=== PATIENT | male | born 1940 | race Caucasian/White ===

== ENCOUNTER 2017-10-27 11:59 | Emergency (ER) | payer MEDICARE, OTHER ==
[~2017-10-27] VITALS: Ht 190.5 cm; Wt 106.6 kg
[~2017-10-27 11:59] MED LIST: CIPRO500 MG PO; DILAUDID2 MG PO; FLOMAX0.4 MG PO; MULTIVITAMINS1 EAC7 PO; NIACIN50 MG PO; ZINC50 MG PO; ZOFRAN ODT4 MG PO
[2017-10-27] MEDS ORDERED: ALEVE220 MG (12:12)
[2017-10-27] MEDS ORDERED: TURMERIC500 M2 PO (12:13)
--- OUTSIDE RECORDS SUMMARY | 2017-10-27 13:27 | XMS | Clinical Summary ---
Demographics + + + | Address | [address] | | | [place] [address] | + + + | Home Phone | | + + + | Preferred Language | Unknown | + + + | Marital Status | | + + + | Episcopal Affiliation | 1013 | + + + | Race | Unknown | + + + | Ethnic Group | Unknown | + + + Author + + + | Author | [facility] | | | and [place] | + + + | Organization | [facility] | | | and [place] | + + + | Address | Unknown | + + + | Phone | Unavailable | + + + Support + + + + + | Name | Relationship | Address | Phone | + + + + + | Wally Holland | ECON | [address] | | | | | [place] [address] | | + + + + + | Charito Cowan J | ECON | [address] | | | | | [place], | | | | | [place] [address] | | + + + + + Care Team Providers + +------+ + | Care Cardiology Fellow Name | Role | Phone | + +------+ + | Miguel Martell DO | PP | Unavailable | + +------+ + Allergies + + + + + + | Active Allergy | Reactions | Severity | Noted | Comments | | | | | Date | | + + + + + + | Codeine | Other (See Comments) | Medium | 04/28/20 | Convulsions | | | | | 12 | | + + + + + + Current Medications + + +-------+---------+------+------+-------+ | Prescription | Sig. | Disp. | Refills | Star | End | Statu | | | | | | t | Date | s | | | | | | Date | | | + + +-------+---------+------+------+-------+ | zinc 50 MG TABS | Take 50 mg by mouth | | | | | Activ | | | Daily. | | | | | e | + + +-------+---------+------+------+-------+ | niacin 500 mg | Take 500 mg by mouth | | | | | Activ | | tablet | daily (with | | | | | e | | | breakfast). | | | | | | + + +-------+---------+------+------+-------+ | SELENIUM PO | Take 1 tablet by | | | | | Activ | | | mouth Daily. Dosage | | | | | e | | | unknown. Please | | | | | | | | update. | | | | | | + + +-------+---------+------+------+-------+ | aspirin (BABY | Take 81 mg by mouth | | | | | Activ | | ASPIRIN) 81 mg | Daily. | | | | | e | | chewable tablet | | | | | | | + + +-------+---------+------+------+-------+ | Misc Natural | Take 1 tablet by | | | | | Activ | | Products (GINSENG | mouth Daily. Dosage | | | | | e | | COMPLEX PO) | unknown. Please | | | | | | | | update. | | | | | | + + +-------+---------+------+------+-------+ Active Problems + + + | Problem | Noted Date | + + + | Lumbar spinal stenosis | | + + + | Spondylolisthesis of lumbar region | | + + + + + | Overview: IATROGENIC | + + + +---+ | Lumbar radiculopathy | | + +---+ | Hypercholesterolemia | | + +---+ | Osteoarthritis | | + +---+ | Anxiety | | + +---+ | Claustrophobia | | + +---+ | Cataracts, bilateral | | + +---+ | History of kidney stones | | + +---+ | History of carpal tunnel syndrome | | + +---+ Family History + + +------+ + | Medical History | Relation | Name | Comments | + + +------+ + | Cancer | Mother | | | + + +------+ + + +------+ + + | Relation | Name | Status | Comments | + +------+ + + | Mother | | | lung/breast cancer | | | | (Age | | | | | 43) | | + +------+ + + Social History + +-------+ +--------+------+ | Tobacco Use | Types | Packs/Day | Years | Date | | | | | Used | | + +-------+ +--------+------+ | Never Smoker | | | | | + +-------+ +--------+------+ + +---+---+---+ | Smokeless Tobacco: | | | | | Never Used | | | | + +---+---+---+ + + +---------+ + | Alcohol Use | Drinks/We | oz/Week | Comments | | | ek | | | + + +---------+ + | Yes | | | moderately | + + +---------+ + + + + | Sex Assigned at | Date Recorded | | | | + + + | Not on file | | + + + Last Filed Vital Signs + + + + | Vital Sign | Reading | Time Taken | + + + + | Blood Pressure | 123/75 | 02/10/2013 1539 PDT | + + + + | Pulse | 75 | 02/10/2013 1539 PDT | + + + + | Temperature | - | - | + + + + | Respiratory Rate | 16 | 02/10/20131538 PDT | + + + + | Oxygen Saturation | - | - | + + + + | Inhaled Oxygen | - | - | | Concentration | | | + + + + | Weight | 110.7 kg (244 lb) | 02/10/20131538 PDT | + + + + | Height | 193 cm (6' 4") | 02/10/20131538 PDT | + + + + | Body Mass Index | 29.7 | 02/10/20131538 PDT | + + + + Plan of Treatment + + + + + | Health Maintenance | Due Date | Last Done | Comments | + + + + + | Vaccine: | | | | | Dtap/Tdap/Td (1 - | 1 | | | | Tdap) | | | | + + + + + | Vaccine: Zoster (#1) | | | | | | 2 | | | + + + + + | Vaccine: | | | | | Pneumococcal 65+ | 7 | | | | Low/Medium Risk (1 | | | | | of 2 - PCV13) | | | | + + + + + | Vaccine: Influenza | | | | | (Season Ended) | 8 | | | + + + + + Results Not on filefrom Last 3 Months Insurance + +--------+ +--------+ +---------+ | Payer | Benefi | Subscriber | Type | Phone | Address | | | t Plan | ID | | | | | | / | | | | | | | Group | | | | | + +--------+ +--------+ +---------+ | MEDICARE | MEDICA | xxxxxxxxxx | Medica | [phone] | | | | RE | | re | [phone] | | | | PART A | | | | | | | AND B | | | | | + +--------+ +--------+ +---------+ | [employer] [place] | UNITED | xxxxxxxx | [place]aci | [phone] | | | | OF | | ity | 1000 | | | | [place] | | | | | | | MDCR | | | | | | | SUPPL | | | | | + +--------+ +--------+ +---------+ + +--------+ +--------+ + + | Guarantor Name | Accoun | Relation to | Date | Phone | Billing Address | | | t Type | Patient | of | | | | | | | | | | + +--------+ +--------+ + + | REBECA COWAN | Person | Self [birth year] | Work: | [address] | | | [place] | | 1940 | +- | [place] [address] | | | [address] | | | [phone]: | | | | | | | | | | | | | | +- | | | | | | | 1999 | | + +--------+ +--------+ + +
--- OUTSIDE RECORDS SUMMARY | 2017-10-27 13:27 | XMS | Clinical Summary ---
Demographics + + + | Address | [address] | | | [place] [address] | + + + | Home Phone | | + + + | Preferred Language | Unknown | + + + | Marital Status | | + + + | Jew Affiliation | 1013 | + + + | Race | Unknown | + + + | Ethnic Group | Unknown | + + + Author + + + | Author | [facility] | | | and [place] | + + + | Organization | [facility] | | | and [place] | + + + | Address | Unknown | + + + | Phone | Unavailable | + + + Support + + + + + | Name | Relationship | Address | Phone | + + + + + | Wally Holland | ECON | [address] | | | | | [place] [address] | | + + + + + | Charito Cowan J | ECON | [address] | | | | | [place], | | | | | [place] [address] | | + + + + + Care Team Providers + +------+ + | Care Elevator Examiner Name | Role | Phone | + [...] + +--------+ +--------+ +---------+ | [employer] [place] | [place] | [phone] | [address] | [phone] | | | | [place] | | it[place] | [address] | | | | [place] | | | | | | | [...] | 1940 | +- | [place] [address] | | | [address] | | | [address]: | | | | | | | | | | | | | | +- | | | | | | | 2000 | | + +--------+ +--------+ + +
[2017-10-27] MEDS ORDERED: ULTRAM50 MG PO (14:42)
== END 2017-10-27 14:55 | disposition home or self-care (01) ==
LOC: ED 11:59
DX: M16.11 Unilateral primary osteoarthritis, right hip (principal); Z88.5 Allergy status to narcotic agent; Z79.899 Other long term (current) drug therapy
CPT/HCPCS: 72170; 73502; 96372; 99283; J1885

== ENCOUNTER 2017-11-08 19:59 | Emergency (ER) | payer MEDICARE, OTHER ==
[~2017-11-08] VITALS: Ht 182.9 cm; Wt 106.6 kg
--- OUTSIDE RECORDS SUMMARY | ~2017-11-08 | XMS | Clinical Summary ---
Demographics + + + | Address | [address] | | | [place] [address] | + + + | Home Phone | | + + + | Preferred Language | Unknown | + + + | Marital Status | | + + + | Shinto Affiliation | 1013 | + + + | Race | Unknown | + + + | Ethnic Group | Unknown | + + + Author + + + | Author | [facility] | | | and [place] | + + + | Organization | [facility] | | | and [place] | + + + | Address | Unknown | + + + | Phone | Unavailable | + + + Support + + + + + | Name | Relationship | Address | Phone | + + + + + | Wally Holland | ECON | [address] | | | | | [place] [address] | | + + + + + | Charito Cowan J | ECON | [address] | | | | | [place], | | | | | [place] [address] | | + + + + + Care Team Providers + +------+ + | Care Community Service Technician Name | Role | Phone | + [...] | MEDICA | xxxxxxxxxx | Medica | [phone] | | | | RE | | re | [phone] | | | | PART A | | | | | | | AND B | | | | | + +--------+ +--------+ +---------+ | [employer] [place] | [place] | xxxxxxxx | Indemn | [phone] | | | | OF | | ity | [address] | | | | [place] | | | | | | | [...] | [address] | | | al/[place] | | 1941 | +- | [place] [address] | | | [address] | | | [address]: | | | | | | | | | | | | | | +- | | | | | | | 1999 | | + +--------+ +--------+ + +
--- OUTSIDE RECORDS SUMMARY | ~2017-11-08 | XMS | Clinical Summary ---
Demographics + + + | Address | [address] | | | [place] [address] | + + + | Home Phone | | + + + | Preferred Language | Unknown | + + + | Marital Status | | + + + | Amish Affiliation | 1013 | + + + | Race | Unknown | + + + | Ethnic Group | Unknown | + + + Author + + + | Author | [facility] | | | and [place] | + + + | Organization | [facility] | | | and [place] | + + + | Address | Unknown | + + + | Phone | Unavailable | + + + Support + + + + + | Name | Relationship | Address | Phone | + + + + + | Wally Holland | ECON | [address] | | | | | [place] [address] | | + + + + + | Charito Cowan J | ECON | [address] | | | | | [place], | | | | | [place] [address] | | + + + + + Care Team Providers + +------+ + | Care Model And Mold Maker Plaster Name | Role | Phone | + [...] + +--------+ +--------+ +---------+ | [employer] [place] [employer] | [place] | [phone] | Indemn | [phone] | | | | OF | | ity | [address] | | | | [place] | | | | | | | [...] | 1941 | +- | [place] [address] | | | [address] | | | [address]: | | | | | | | | | | | | | | +- | | | | | | | 2000 | | + +--------+ +--------+ + +
[~2017-11-08 19:59] MED LIST changes: +ALEVE220 MG; +TURMERIC500 M2 PO; +ULTRAM50 MG PO
[2017-11-08] MEDS ORDERED: CRESTOR5 MG PO (20:25)
[2017-11-08] MEDS ORDERED: NORCO 5-325 TA1 EACH PO (21:07)
== END 2017-11-08 21:17 | disposition home or self-care (01) ==
LOC: ED 19:59
DX: M25.551 Pain in right hip (principal); Z98.890 Other specified postprocedural states; Z88.5 Allergy status to narcotic agent; Z79.899 Other long term (current) drug therapy
CPT/HCPCS: 99283

== ENCOUNTER 2021-09-24 11:39 | Emergency (ER) | payer MEDICARE, OTHER ==
[~2021-09-24 11:39] MED LIST changes: +CRESTOR5 MG PO; +NORCO 5-325 TA1 EACH PO
--- OUTSIDE RECORDS SUMMARY | 2021-09-24 11:46 | XMS ---
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 Care History Medical/Surgical 11/11/2017 [facility] Care Recommendation: This patient has had 5 or more Emergency Department visits in the last 12 months. Patient requires education on the scope and purpose of the ED as an acute care provider not a Primary Care Provider and should not be utilized for chronic conditions. If patient returns to ED please contact Community Health WorkerAnayeli at [phone]. These are guidelines and the provider should exercise clinical judgment when providing care. E.D. VISIT COUNT (12 MO.) [address] [facility] TOTAL 2 NOTE: Visits indicate total known visits. ED/UCC VISIT TRACKING (12 MO.) 09/24/2021 11:40 [facility] TYPE: Emergency COMPLAINT: - POSS BROKEN RT WRSIT 09/05/2021 13:15 [facility] TYPE: Emergency DIAGNOSES: - Calculus of kidney - Abdominal Pain, Nausea, Headache - Abdominal aortic aneurysm, without rupture - Diverticulosis of intestine, part unspecified, without perforation or abscess without bleeding - Aneurysm of iliac artery INPATIENT VISIT TRACKING (12 MO.) No inpatient visits to display in this time frame [email or web address]
== END 2021-09-24 13:50 | disposition home or self-care (01) ==
LOC: ED 11:39
DX: S63.501A Unspecified sprain of right wrist, initial encounter (principal); M19.031 Primary osteoarthritis, right wrist; E78.5 Hyperlipidemia, unspecified; Z88.5 Allergy status to narcotic agent; Z79.899 Other long term (current) drug therapy; W18.30XA Fall on same level, unspecified, initial encounter
CPT/HCPCS: 29125; 73110; 99283-25

== ENCOUNTER 2022-09-27 15:05 | Emergency (ER) | payer MEDICARE, OTHER ==
[~2022-09-27] VITALS: Ht 190.5 cm; Wt 110.4 kg
[2022-09-27] MEDS ORDERED: MAGNESIUM250 M2 PO (15:37)
[2022-09-27] MEDS ORDERED: XARELTO20 MG PO (15:38)
[2022-09-27] MEDS ORDERED: METOPROLOL SUCC25 MG PO (15:38)
[2022-09-27] MEDS ORDERED: CEFDINIR300 MG PO (19:50)
[2022-09-27] MEDS ORDERED: ONDANSETRON ODT8 MG PO (19:50)
[2022-09-27] MEDS ORDERED: HYDROCODON-ACE1 EA11 PO (19:50)
[2022-09-27] MEDS ORDERED: FLOMAX0.4 MG PO (19:50)
--- NOTE | 2022-09-28 21:48 | EKG ---
[facility] [address] [facility] [place], [place] [address] Signed Accelerated Junctional rhythm Left axis deviation Anterior infarct , age undetermined Prolonged QT Abnormal ECG No previous ECGs available Confirmed by JOSE RAFAEL MURRELL MD ([id number]) on 09/28/2022 9:48:18 PM Electronically Signed By: JOSE RAFAEL MURRELL MD 09/28/22 2148 PATIENT NAME: RADHAREBECA Electrocardiogram DATE OF : 42 PHYSICIAN: JOSE RAFAEL MURRELL MD REPORT #: [id number] REPORT IS CONFIDENTIAL AND NOT TO BE RELEASED WITHOUT AUTHORIZATION
== END 2022-09-27 20:28 | disposition home or self-care (01) ==
LOC: ED 15:05
DX: N13.2 Hydronephrosis with renal and ureteral calculous obstruction (principal); E78.5 Hyperlipidemia, unspecified; Z88.5 Allergy status to narcotic agent; Z79.899 Other long term (current) drug therapy
CPT/HCPCS: 36415; 74176; 80053; 81001; 83690; 85025; 85610; 93005; 93010; 96365; 96375; 99284-25; J0696; J1170; J2405; J7030

== ENCOUNTER 2025-02-08 10:41 | Emergency (ER) | payer MEDICARE, OTHER ==
[~2025-02-08] VITALS: Ht 190.5 cm; Wt 109.0 kg
[~2025-02-08 10:41] MED LIST changes: +CARTIA XT120 MG PO; +CEFDINIR300 MG PO; +COLESTIPOL HCL1 GM PO; +HYDROCODON-ACE1 EA11 PO; +LASIX20 MG PO; +MAGNESIUM250 M2 PO; +MAGNESIUM250 MG PO; +METOPROLOL SUCC25 MG PO; +ONDANSETRON ODT8 MG PO; +XARELTO20 MG PO
[2025-02-08] MEDS ORDERED: OXYCODONE HCL5 MG PO (11:33)
[2025-02-08] MEDS ORDERED: TORSEMIDE20 MG PO (11:33)
[2025-02-08 12:50] VITALS: BP 102/68
== END 2025-02-08 12:50 | disposition home or self-care (01) ==
LOC: ED 10:41
DX: M70.32 Other bursitis of elbow, left elbow (principal); E78.5 Hyperlipidemia, unspecified; E11.9 Type 2 diabetes mellitus without complications; Z79.899 Other long term (current) drug therapy; Z88.5 Allergy status to narcotic agent; Z88.8 Allergy status to other drugs, medicaments and biological substances
CPT/HCPCS: 20605; 73080; 99283-25

== ENCOUNTER 2025-05-01 11:56 | Emergency (ER) | payer MEDICARE, OTHER ==
[~2025-05-01] VITALS: Ht 190.5 cm; Wt 109.3 kg
[~2025-05-01 11:56] MED LIST changes: +OXYCODONE HCL5 MG PO; +TORSEMIDE20 MG PO
[2025-05-01] MEDS ORDERED: OXYMETAZOLINE HCL 30 ML BTL NAS ONE (12:15)
[2025-05-01] MEDS ORDERED: SILVER NITRATE 1 EA SWAB TOP ONE (13:30)
[2025-05-01 14:11] VITALS: BP 126/84
== END 2025-05-01 14:10 | disposition home or self-care (01) ==
LOC: ED 11:56
DX: R04.0 Epistaxis (principal); E11.9 Type 2 diabetes mellitus without complications; I48.91 Unspecified atrial fibrillation; E78.5 Hyperlipidemia, unspecified; Z91.048 Other nonmedicinal substance allergy status; Z79.01 Long term (current) use of anticoagulants; Z79.899 Other long term (current) drug therapy
CPT/HCPCS: 30901; 99283

== ENCOUNTER 2025-05-01 19:23 | Emergency (ER) | payer MEDICARE, OTHER ==
[~2025-05-01] VITALS: Ht 190.5 cm; Wt 110.2 kg
[2025-05-01] MEDS ORDERED: OXYMETAZOLINE HCL 30 ML BTL NAS ONE (21:30)
[2025-05-01 21:36] LABS: BASOPHILS 0.6 % (0.2-1.2); EOSINOPHILS 2.7 % (0.8-7.0); LYMPHOCYTES 10.8 % (21.8-53.1); MCH 33.4 PG (25.7-32.2); MCHC 33.6 g/dL (32.3-36.5); MCV 99.4 fL (79.0-92.2); MONOCYTES 10.2 % (5.3-12.2); NEUTROPHILS 75.6 % (34.0-67.9); RBC 4.67 M/uL (4.63-6.08)
[2025-05-01 21:47] LABS: INR 1.85 (0.80-1.30); PROTIME 20.2 Sec (11.2-14.2)
[2025-05-01 22:42] VITALS: BP 113/74
== END 2025-05-01 22:43 | disposition home or self-care (01) ==
LOC: ED 19:23
PROVIDERS: Internal Medicine
DX: R04.0 Epistaxis (principal); I48.91 Unspecified atrial fibrillation; E78.5 Hyperlipidemia, unspecified; E11.9 Type 2 diabetes mellitus without complications; Z91.048 Other nonmedicinal substance allergy status; Z79.01 Long term (current) use of anticoagulants; Z79.899 Other long term (current) drug therapy
CPT/HCPCS: 30905; 36415; 85025; 85610; 85730; 99283-25